=== PATIENT | female | born 1955 | race Caucasian/White ===

== ENCOUNTER → 2019-04-15 | Outpatient (CLI) | payer OTHER | LOC: M.ULTRA 11:30 | DX: N28.9 Disorder of kidney and ureter, unspecified (principal) ==

== ENCOUNTER 2020-06-16 16:28 | Emergency (ER) | payer OTHER ==
[~2020-06-16] VITALS: Ht 157.5 cm; Wt 77.1 kg
[2020-06-16] MEDS ORDERED: LISINOPRIL10 MG PO (16:42)
[2020-06-16] MEDS ORDERED: TRESIBA100 UNIT/1 SUBQ (16:43)
[2020-06-16] MEDS ORDERED: LIPITOR 20 MG T20 M1 PO (16:43)
[2020-06-16 17:10] LABS: ABSOLUTE LYMPHOCYTES 1.4 thou/uL (0.8-5.3); ABSOLUTE MONOCYTES 0.7 thou/uL (0.0-1.2); ABSOLUTE NEUTROPHILS 2.7 thou/uL (1.6-8.1); BASOPHILS 0.3 %; EOSINOPHILS 0.1 %; HEMATOCRIT 41.3 % (37.0-47.0); HEMOGLOBIN 13.8 gm/dL (12.0-15.0); LYMPHOCYTES 28.4 %; MCH 30.7 pg (26.0-34.0); MCHC 33.4 g/dL (28.0-37.0); MCV 91.8 fL (80.0-100.0); MONOCYTES 14.1 %; MPV 8.9 fl. (7.2-11.1); NUCLEATED RBCS 0 /100WBC; PLATELET COUNT* 198 thou/uL (150-400); POLYS 57.1 %; RDW-CV 12.7 % (10.5-14.5); WBC 4.8 thou/uL (4.0-11.0)
[2020-06-16 17:15] LABS: CALCIUM 9.2 mg/dL (8.5-10.1); CREATININE 1.5 mg/dL (0.6-1.3); POTASSIUM 3.7 mmol/L (3.5-5.1)
[2020-06-16 17:18] LABS: APTT 25.2 Seconds (25.0-31.3); PROTIME 10.5 Seconds (9.20-11.50)
[2020-06-16 17:25] LABS: URINE BILIRUBIN NEGATIVE (Negative); URINE BLOOD NEGATIVE (Negative); URINE CLARITY CLEAR; URINE COLOR DARK YELLOW; URINE GLUCOSE-RANDOM NEGATIVE (Negative); URINE KETONES NEGATIVE (Negative); URINE LEUKOCYTES-REFLEX 1+ (Negative); URINE PROTEIN 1+ (Negative); URINE SPECIFIC GRAVITY 1.025 (1.005-1.030)
[2020-06-16 17:26] LABS: ALBUMIN 3.1 g/dL (3.4-5.0); TOTAL BILIRUBIN 0.5 mg/dL (<0.1-1.0); TOTAL PROTEIN 6.8 g/dL (6.4-8.2)
[2020-06-16 17:29] LABS: URINE NITRITE-REFLEX POSITIVE (Negative)
[2020-06-16] MEDS ORDERED: KEFLEX500 M1 PO (17:31)
[2020-06-16] MEDS ORDERED: APAP W/CODEINE1 TA2 PO (17:31)
[2020-06-16] MEDS ORDERED: ONDANSETRON ODT4 MG PO (17:31)
[2020-06-16 18:06] LABS: BACTERIA-REFLEX >30 Many /HPF (None Seen); HYALINE CASTS >10 Many /LPF (None Seen); MUCUS 4-6 Moderate strn/LPF (None Seen); SQUAMOUS >10 Many /LPF (0-3)
[2020-06-16 18:07] LABS: CRYSTALS None Seen /LPF (None Seen); URINE RBC None Seen /HPF (0-2); URINE WBC-REFLEX 6-15 Few /HPF (0-5)
[2020-06-16 18:42] VITALS: BP 129/42
--- NOTE | 2020-06-17 12:09 | EKG ---
[place] [address] ELECTROCARDIOGRAM REPORT Name: ANNAMARIA CUMMINS Room: [facility]#: [id number] Admission: 06/16/20 Attend Phys: Discharge: 06/16/20 Date of : 57 Date of Service: 06/16/201711 Report #: [id number] THIS REPORT FOR: //name// [facility] ED Test Date: 2020-06-16 Test Time: 17:12:14 Pat Name: ANNAMARIA CUMMINS Department: Room: Gender: F [employer]: itz : 1955 Requested By: Mohan Messina Order Number: [id number] MD: Graham Grayson Measurements Intervals [place] Rate: 65 P: 62 CA: 140 QRS: -5 QRSD: 80 T: 61 QT: 387 QTc: 403 Interpretive Statements Sinus rhythm No previous ECG available for comparison Electronically Signed On 06-17-2020 12:09:27 DIRECTOR OF BLOOD by Graham Grayson [email or web address] <ELECTRONICALLY SIGNED> By: Graham Grayson MD, [facility] 06/17/20 1209 11 11 Graham Grayson MD, FAC /EPI
== END 2020-06-16 18:43 | disposition home or self-care (01) ==
LOC: M.ERS 16:28
PROVIDERS: Family Medicine
DX: U07.1 COVID-19 (principal); N39.0 Urinary tract infection, site not specified; E86.0 Dehydration; E11.9 Type 2 diabetes mellitus without complications; R79.1 Abnormal coagulation profile; I10 Essential (primary) hypertension; Z90.49 Acquired absence of other specified parts of digestive tract; Z79.899 Other long term (current) drug therapy; Z79.4 Long term (current) use of insulin